=== PATIENT | male | born 1990 | race African-American/Black ===

== ENCOUNTER 2021-03-21 22:33 | Emergency (ER) | payer MEDICARE, MEDICAID ==
[~2021-03-21] VITALS: Ht 188 cm; Wt 149.5 kg
[2021-03-22] MEDS ORDERED: OLANZAPINE 10MG TABLET PO STA (00:05)
[2021-03-22] MEDS ORDERED: LORAZEPAM 1MG TABLET PO ONE (00:15)
[2021-03-22] MEDS ORDERED: LORAZEPAM 2MG/ML CPJ IM STA (00:32)
[2021-03-22] MEDS ORDERED: OLANZAPINE 10 MG/VIAL IM ONE (00:45)
[2021-03-22 01:15] LABS: BASOPHILS % 1.1 % (0.0-2.0); EOSINOPHILS % 2.1 % (0.0-5.0); HEMATOCRIT. 35.9 % (42.0-52.0); HEMOGLOBIN. 11.6 g/dL (14.0-18.0); LYMPHOCYTES % 27.7 % (20.0-50.0); MEAN CORPUSCULAR HEMOGLOBIN 27.5 pg (28.0-32.0); MEAN CORPUSCULAR VOLUME 85.1 fL (80.0-94.0); MEAN PLATELET VOLUME 8.9 fl (7.4-10.4); MONOCYTES % 8.4 % (2.0-8.0); NEUTROPHILS % 60.7 % (40.0-76.0); PLATELET 295 x1000/uL (130-400); RED BLOOD CELL COUNT 4.22 mill/uL (4.7-6.1); RED CELL DISTRIBUTION WIDTH 15.3 % (11.6-14.6)
[2021-03-22 01:18] LABS: CHLORIDE 105 mEq/L (98-107)
[2021-03-22 01:22] LABS: ETHANOL BLOOD < 10 mg/dL
[2021-03-22 05:29] LABS: CLARITY URINE CLEAR (CLEAR); COLOR URINE YELLOW (YELLOW); KETONES URINE NEGATIVE (NEGATIVE); LEUKOCYTE ESTERASE URINE NEGATIVE (NEGATIVE); NITRITE URINE NEGATIVE (NEGATIVE); OCCULT BLOOD URINE NEGATIVE (NEGATIVE); PH URINE 5.5 (4.5-8.0); PROTEIN URINE NEGATIVE (NEGATIVE); SPECIFIC GRAVITY URINE 1.015 (1.005-1.030); UROBILINOGEN URINE 0.2 E.U./dL (0.2-1.0)
[2021-03-22 06:39] LABS: *AMPHETAMINES SCREEN URINE NEGATIVE (NEGATIVE); *BARBITURATES SCREEN URINE NEGATIVE (NEGATIVE); *BENZODIAZEPINES SCREEN URINE NEGATIVE (NEGATIVE); CANNABINOID URINE SCREEN NEGATIVE (NEGATIVE); METHADONE URINE SCREEN NEGATIVE (NEGATIVE); OPIATES URINE SCREEN NEGATIVE (NEGATIVE); PHENCYCLIDINE URINE SCREEN NEGATIVE (NEGATIVE)
[2021-03-22 06:41] LABS: *COCAINE SCREEN URINE NEGATIVE (NEGATIVE)
[2021-03-22] MEDS: ZIPRASIDONE HCL 40MG CAPSULE PO SCH ×2 (08:43→17:13)
[2021-03-22] MEDS ORDERED: SERTRALINE HCL 50MG TABLET PO SCH (09:00)
[2021-03-22 22:00] VITALS: BP 156/81
[2021-03-23] MEDS ORDERED: OLANZAPINE 10MG TABLET PO ONE
[2021-03-23] MEDS ORDERED: ALBUTEROL (0.083%) 2.5MG/3ML NEB HHN STA (00:26)
[2021-03-23] MEDS ORDERED: ZIPRASIDONE HCL 40MG CAPSULE PO SCH (09:00)
== END 2021-03-23 01:30 ==
LOC: ER 22:33
DX: R45.851 Suicidal ideations (principal); R06.02 Shortness of breath; R03.0 Elevated blood-pressure reading, without diagnosis of hypertension; R73.9 Hyperglycemia, unspecified; D64.9 Anemia, unspecified; J45.909 Unspecified asthma, uncomplicated; R46.0 Very low level of personal hygiene; Z20.822 Contact with and (suspected) exposure to COVID-19; Z91.51 Personal history of suicidal behavior; Z59.00 Homelessness unspecified; Z75.1 Person awaiting admission to adequate facility elsewhere; Z91.14 Patient's other noncompliance with medication regimen
CPT/HCPCS: 36415; 94640; 96372; 99285; J2060; J3490